=== PATIENT | male | born 1980 ===

== ENCOUNTER 2016-09-22 08:15 | Outpatient (RCR) | payer OTHER | END 2016-10-30 16:19 | disposition home or self-care (01) | LOC: PT 08:15 | PROVIDERS: ATTEND Physician Assistant | DX: Z98.890 Other specified postprocedural states (principal); M25.612 Stiffness of left shoulder, not elsewhere classified | CPT/HCPCS: 97001; 97016; 97110; 97140; G8984; G8985; G8986 ==